=== PATIENT | female | born 1970 | race Caucasian/White ===

== ENCOUNTER → 2016-09-04 | Outpatient (CLI) | payer OTHER | LOC: MC.RAD 08-28 15:20 | DX: Z12.31 Encounter for screening mammogram for malignant neoplasm of breast (principal) ==

== ENCOUNTER → 2022-01-22 | Outpatient (CLI) | payer BC | LOC: MC.RAD 15:21 | DX: Z12.31 Encounter for screening mammogram for malignant neoplasm of breast (principal) ==

== ENCOUNTER → 2022-09-16 | Outpatient (CLI) | payer BC | LOC: COL.RAD 13:49 | DX: R90.89 Other abnormal findings on diagnostic imaging of central nervous system (principal); R93.0 Abnormal findings on diagnostic imaging of skull and head, not elsewhere classified | CPT/HCPCS: A9575 ==

== ENCOUNTER → 2023-02-25 | Outpatient (CLI) | payer BC | LOC: CANSCHCLI → MC.RAD 16:13 | DX: Z12.31 Encounter for screening mammogram for malignant neoplasm of breast (principal) ==